=== PATIENT | female | born 1945 | race Caucasian/White ===

== ENCOUNTER 2025-07-23 09:11 | Emergency (ER) | payer MEDICARE, MEDICAID ==
[~2025-07-23] VITALS: Ht 162.6 cm; Wt 80.0 kg
--- NOTE | 2025-07-23 09:21 | Physician Documentation ---
History of Present Illness ~ Chief Complaint: Stroke Alert Stated Complaint: CVA Time Seen by MD: 09:17 OK to notify your PCP?: Yes Source: patient, RN/MD, EMS, RN notes reviewed, EMS notes reviewed, old records Mode of Arrival: EMS Exam Limitations: no limitations HPI Patient is an 80-year-old female with past medical history of hypertension and GERD brought in by ambulance from home to the ED for a level 2 stroke alert. Patient's last known normal was yesterday afternoon. Per EMS patient reported that she had right-sided paralysis" causing her to fall. Patient did not come in for evaluation at that time, but decided to come in this morning after friend urged her. Patient was ataxic for EMS and complained of a present 5/10 headache. Blood sugar in route was 158 and blood pressure was 150/62. Patient normally takes 81 mg aspirin every night, with last dose being last night. Patient reports she was recently evaluated here on 06/21/2025 for coccyx pain status post mechanical fall. Patient denies any other associated symptoms at this time. Patient denies any other alleviating or exacerbating factors. Medication Reconciliation Allergies: Coded Allergies: Penicillins (Verified Allergy, Unknown, RASH, 07/23/25) Uncoded Allergies: BEES (Allergy, Unknown, ANAPHALAXIS, 06/21/25) Past Medical History Past Medical History: Hypertension, GERD Smoking Status: Unknown if ever smoked Lives In: Home Review of Systems All Other Systems at this time: Reviewed and Negative ROS Headache as well as other positive symptoms noted above in the HPI, otherwise all other systems are reviewed and negative. Physical Exam Vital Signs: RN Vital Signs have been reviewed: Yes, Temperature: 98.3, Source: Oral, Heart Rate: 65, Respiratory Rate: 18, BP: 150/62, Pulse Oximetry: 99, Weight: 80.000 Oxygen Flow Rate: 0 General Appearance General: The patient is well developed, well nourished, nontoxic appearing and is in no acute distress. Skin: [place], warm and dry with no rashes. HEENT: Head was normocephalic and atraumatic. Eyes - pupils equal, round, reactive to light and accommodation. Extraocular movements were intact. Conjunctivae were nonicteric. The mouth and oropharynx were clear with moist mucous membranes. There were no pharyngeal exudates or erythema. Neck: Supple and nontender. There was no jugular venous distention, lymphadenopathy, thyromegaly or masses. Chest: Clear to auscultation bilaterally without wheezes, rales or rhonchi. No accessory muscle use. No dullness to percussion. Heart: Rate regular and rhythmic. S1, S2. No murmurs. Palpation of the chest wall was normal. No rubs or thrills. Abdomen: Soft, nontender and nondistended. Positive bowel sounds. No guarding or rebound. Extremities: No cyanosis, clubbing or edema. The patient moves all extremities. Pulses were equal and symmetric. Neurologic: Patient has weakness to right upper extremity and right lower extremity. RLE weakness > RUE weakness. Psychologic: The patient was oriented to person, place and time. The patient demonstrated appropriate judgement and insight. Progress Progress Note 0948: Spoke with on-call radiologist who reports up of a 9 mm shift. Patient will be transferred to neurosurgery. 1003: Consulted with [facility] physician, Dr. Moore, regarding the patient's case. He kindly accepts the patient for transfer at this time. Results/Orders Reviewed/noted all lab results: Yes Results/Orders Orders - BRAN HURTADO MD Electrocardiogram (07/23/25 09:19) Urinalysis, Cult If Indicated (07/23/25:19) Chest,Single View (07/23/25 09:19) Ct Stroke Alert (07/23/25 09:32) * Vital Signs Routine* [id number] (07/23/25 09:19) * Npo Until Passed Bedside Swa (07/23/25:19) Nursing Swallow Screen (07/23/25:19) [place] Neuro Consult (07/23/25 09:22) Normal Saline 1000ml (0.9% Sodium Chlori (07/23/25:25) Tranexamic Acid 1gm/0.7% Alan. (Tranexami (07/23/25 09:30) Completed Orders - BRAN HURTADO MD Electrocardiogram (07/23/25 09:19) Cbc/Diff (07/23/25:19) BMP (07/23/25 09:19) Pt Inr (07/23/25:19) PTT (07/23/25 09:19) Chest,Single View (07/23/25 09:19) Ct Stroke Alert (07/23/25 09:32) Liver Panel (07/23/25 09:22) MG (07/23/25 09:22) Dexamethasone Inj (Decadron 10mg/Ml Inj) (07/23/25 09:48) Medications Received in ER Medications (Trade) Dose Ordered Sig/Ramona Route PRN Reason Start Time Stop Time Status Last Admin Dose Admin Sodium Chloride 1,000 ml @ 200 mls/hr Q5H ONCE IV 07/23/25 09:25 07/23/25 14:24 07/23/25 09:41 200 MLS/HR Tranexamic Acid 100 ml @ 100 mls/hr ONCE ONCE IV 07/23/25 09:30 07/23/25 10:29 07/23/25 09:41 100 MLS/HR (Decadron 10mg/ ml inj) 10 mg ONCE STAT IV 07/23/25 09:48 07/23/25 09:49 DC 07/23/25 09:53 10 MG Vital Signs 07/23/25 07/23/25 07/23/25 09:13 09:20 09:20 Temp 98.3 Pulse 65 63 Resp 18 16 B/P (MAP) 150/62 159/72 Pulse Ox 99 98 O2 Flow Rate 0 Laboratory Tests Test 07/23/25 09:20 07/23/25 09:21 07/23/25 10:00 Glucometer 146 H White Blood Count 7.5 Red Blood Count 4.70 Hemoglobin 13.5 Hematocrit 40.2 Mean Corpuscular Volume 85.5 Mean Corpuscular Hemoglobin 28.7 Mean Corpuscular Hemoglobin Concent 33.6 Red Cell Distribution Width 13.8 Platelet Count 343 Mean Platelet Volume 7.0 L Neutrophils (%) (Auto) 62.2 Lymphocytes (%) (Auto) 29.7 Monocytes (%) (Auto) 7.0 Eosinophils (%) (Auto) 0.5 Basophils (%) (Auto) 0.6 Neutrophils # (Auto) 4.6 Lymphocytes # (Auto) 2.2 Monocytes # (Auto) 0.5 Eosinophils # (Auto) 0.0 Basophils # (Auto) 0.0 CBC Comment Prothrombin Time 10.6 INR International Normalized Ratio 1.0 Activated Partial Thromboplast Time 24 Coagulation Comments Sodium Level 143 Potassium Level 3.4 L Chloride Level 105 Carbon Dioxide Level 28.7 Anion Gap 9 Blood Urea Nitrogen 15 Creatinine 0.81 Estimated GFR/1.73 m2 68 BUN/Creatinine Ratio 18.5 Glucose Level 144 H Calcium Level 9.7 Magnesium Level 2.2 Total Bilirubin 0.6 Direct Bilirubin 0.1 Aspartate Amino Transf (AST/SGOT) 29 Alanine Aminotransferase (ALT/SGPT) 31 Alkaline Phosphatase 125 H Total Protein 7.9 Albumin 4.0 Globulin 3.9 Albumin/Globulin Ratio 1.0 L Chemistry Comments Urine Comment Re-Evaluation Re-Evaluation : Re-Evaluation: Unchanged Progress Patient was seen and examined. Patient is given reassurance. Patient was found to have an acute on chronic subdural hematoma now asymptomatic given TXA as well as 10 mg of Decadron. Patient received some fluids as well. Family members will be called if available. Discussed the case with [facility] who kindly agreed to admit the patient for emergent medical and neurosurgical intervention. Patient looks well at this time smiling comfortable. EKG/XRAY/CT/US/VASC/MRI EKG : EKG Rate: 61 Additional Comment [facility] Test Date: 2025-07-23 Test Time: 09:15:51 Pat Name: YONNY BILLINGS Department: EMERGENCY ROOM Room: Gender: F [employer]: [employer]IM[employer] : 1945 Requested By: BRAN HURTADO Order Number: [id number] Reading MD: Dr. Bran Hurtado Measurements Intervals [place] Rate: 61 P: 73 [place]: 168 QRS: -11 QRSD: 139 T: 20 QT: 473 QTc: 477 Interpretive Statements Atrial-paced complexes Left bundle branch block Electronically Signed On 07-23-2025 9:54:[address] Bran Hurtado Please click the below link to view image of tracing. EKG Date and Time:07/23/25914 Electronically Signed by: BRAN HURTADO MD Date and Time: 07/23/25953 Chest X-Ray : Interpreted By: radiologist Views: 1 VIEW Additional Comments CHEST RADIOGRAPH Indication: Stroke Alert Technique: Single frontal view of the chest was obtained COMPARISON: None FINDINGS: Lines and Tubes: None Lungs: Increased interstital prominence. This may represent pulmonary vascular congestion and/or viral pneumonia. Pleura: No effusion.No pneumothorax. Cardiomediastinal contours: Cardiomegaly. Bones: Unremarkable IMPRESSION: Cardiomegaly. Increased interstital prominence. This may represent pulmonary vascular congestion and/or viral pneumonia. Electronically Signed by:AVILA HOLT MD Date & Time: 07/23/2556 CT : Interpreted By: radiologist CT: head Impression EXAM: CT CT STROKE ALERT HISTORY: right sided weaknes ataxia COMPARISON: None TECHNIQUE: Axial images were obtained and reformatted in coronal and sagittal planes. All CT scans at this medical facility are performed using dose modulation techniques as appropriate to a performed exam including the following: Automated exposure control was utilized; adjustment of the MA and/or KV according to patient size; and use of iterative reconstruction technique. CT Dose: CTDI volume is 57 mGy. Dose-length product is 983 mGy*cm FINDINGS: Supratentorial Region: No evidence for large acute territorial ischemia. Left frontal lentiform extra-axial acute hemorrhage with hematocrit effect noted measuring 2.6 cm in transverse and approximately 10 cm in AP. There is 0.9 cm [id number] midline shift. Posterior Fossa: No acute abnormality. Brainstem: Unremarkable. Sellar/Suprasellar Region: Unremarkable. Ventricles, Cisterns, Sulci: Age-appropriate. Orbits: Unremarkable. Paranasal Sinuses: Unremarkable. Mastoid Air Cells: Unremarkable. Vasculature: Unremarkable. Bones/Soft Tissues: No acute abnormality. Other: None. IMPRESSION: Large left frontal fossa extra-axial lentiform hemorrhage containing varying ages of bleed (acute and subacute) with 0.9 cm [id number] midline shift. This could be subdural or epidural. Lentiform appearance is suggestive of epidural hemorrhage but crossing osseous suture reflects subdural location. No calvarial fracture. Critical Result: Stroke Alert , intracranial hemorrhage Findings discussed with , at 07/23/2025 09:51 AM, and acknowledged receipt and understanding of the findings. .. Electronically Signed by:SHERRELL HESS MD Date & Time: 07/23/25 0952 Medical Decision Making Additional information obtaine: old records Findings Fall may have produce original subdural bleed now having acute on chronic subdural bleeds versus acute stroke Differential Dx:Considerations: Include: Kumar's Palse[place], CVA, Delirium tremens, DKA, Drug overdose, Electrolyte imbalance, Encephalopathy, Hypoxemia, Hypoglycemia, Mass lesion, Respiratory failure, Subarachnoid Hemorrhage, TIA, Other Departure Time of Disposition: 09:40 Disposition: 04 INTERMEDIATE CARE FACILITY Admission Level of Care: Neuro Impression: Primary Impression: Acute on chronic subdural hematoma Condition: Critical Referrals: NO PRIMARY CARE PROVIDER (PCP) Education Educated: Patient Educated regarding: diagnosis, treatment Critical Care Note Total Time (mins): 35 Critical Care Note The very real possibility of a deterioration of this patient's condition required the highest level of my preparedness for sudden, emergent intervention. I provided critical care services, which included medication orders, frequent reevaluations of the patient's condition and response to treatment, ordering and reviewing test results, and discussing the case with various consultants. E xcludes time spent performing separately billable procedures. The critical care time associated with the care of the patient was 35 minutes. Signature Scribe Signature: Scribed for Bran Hurtado MD by Sebastian Bhakta . 07/23/25 09:24 Attestation: The note accurately reflects work and decisions made by me.Bran Hurtado MD 07/23 09:21 BRAN HURTADO MD Jul 23, 2025 09:21 SEBASTIAN AYALA Jul 23, 2025 09:30
--- NOTE | 2025-07-23 09:21 | ELECTROCARDIOGRAPH REPORT ---
[facility] Test Date: 2025-07-23 Test Time: 09:15:51 Pat Name: YONNY BILLINGS Department: EMERGENCY ROOM Room: Gender: F Posting Clerk: NIMCO : 1945 Requested By: APOLLO HURTADO Order Number: [id number] Reading MD: Dr. Apollo Hurtado Measurements Intervals [place] Rate: 61 P: 73 NE: 168 QRS: -11 QRSD: 139 T: 20 QT: 473 QTc: 477 Interpretive Statements Atrial-paced complexes Left bundle branch block Electronically Signed On 07-23-2025 9:54:[address] Apollo Hurtado Please click the below link to view image of tracing.
[2025-07-23 09:32] LABS: MEAN PLATELET VOLUME 7.0 FL (7.4-10.4); RED CELL DISTRIBUTION WIDTH 13.8 % (11.5-14.5)
[2025-07-23] MEDS: tranexamic acid 1gm/0.7% sal. 100 ML IV ONE (09:41)
[2025-07-23] MEDS: normal saline 1000ml 1,000 ML IV ONE (09:41)
[2025-07-23 09:46] LABS: APTT 24 SECONDS (22-32); INR 1.0 INR
[2025-07-23 09:47] LABS: CREATININE 0.81 MG/DL (0.40-0.90); TOTAL CARBON DIOXIDE 28.7 MMOL/L (24-32); eCRCL 48 ML/MIN; eGFR 68 ML/MIN
[2025-07-23] MEDS: dexamethasone sod phosphate 10mg/ml inj IV STA (09:53)
--- NOTE | 2025-07-23 09:55 | RADIOLOGY REPORT ---
EXAM: CT CT STROKE ALERT HISTORY: right sided weaknes ataxia COMPARISON: None TECHNIQUE: Axial images were obtained and reformatted in coronal and sagittal planes. All CT scans at this medical facility are performed using dose modulation techniques as appropriate to a performed exam including the following: Automated exposure control was utilized; adjustment of the MA and/or KV according to patient size; and use of iterative reconstruction technique. CT Dose: CTDI volume is 57 mGy. Dose-length product is 983 mGy*cm FINDINGS: Supratentorial Region: No evidence for large acute territorial ischemia. Left frontal lentiform extra-axial acute hemorrhage with hematocrit effect noted measuring 2.6 cm in transverse and approximately 10 cm in AP. There is 0.9 cm [id number]-ji-[id number] midline shift. Posterior Fossa: No acute abnormality. Brainstem: Unremarkable. Sellar/Suprasellar Region: Unremarkable. Ventricles, Cisterns, Sulci: Age-appropriate. Orbits: Unremarkable. Paranasal Sinuses: Unremarkable. Mastoid Air Cells: Unremarkable. Vasculature: Unremarkable. Bones/Soft Tissues: No acute abnormality. Other: None. IMPRESSION: Large left frontal fossa extra-axial lentiform hemorrhage containing varying ages of bleed (acute and subacute) with 0.9 cm [id number] midline shift. This could be subdural or epidural. Lentiform appearance is suggestive of epidural hemorrhage but crossing osseous suture reflects subdural location. No calvarial fracture. Critical Result: Stroke Alert , intracranial hemorrhage Findings discussed with , at 07/23/2025 09:51 AM, and acknowledged receipt and understanding of the findings. ..
--- NOTE | 2025-07-23 09:58 | RADIOLOGY REPORT ---
CHEST RADIOGRAPH Indication: Stroke Alert Technique: Single frontal view of the chest was obtained COMPARISON: None FINDINGS: Lines and Tubes: None Lungs: Increased interstital prominence. This may represent pulmonary vascular congestion and/or viral pneumonia. Pleura: No effusion.No pneumothorax. Cardiomediastinal contours: Cardiomegaly. Bones: Unremarkable IMPRESSION: Cardiomegaly. Increased interstital prominence. This may represent pulmonary vascular congestion and/or viral pneumonia.
[2025-07-23 10:12] VITALS: TEMP 98.3
[2025-07-23 10:13] LABS: LEUKOCYTE ESTERASE ,URINE LARGE (Neg); NITRITES, URINE POSITIVE (Neg); OCCULT BLOOD,URINE TRACE-INTACT (Neg)
[2025-07-23 10:19] LABS: UA COLLECTION TYPE OTHER
[2025-07-23 10:21] LABS: AMORPHOUS PHOSPHATES 1+; SQUAMOUS EPITHELIAL CELL,UR FEW /LPF (FEW)
[2025-07-23 10:33] VITALS: BP 150/78; PULSE 87; RESP 16; O2SAT 98
== END 2025-07-23 10:34 ==
LOC: ER 09:11
DX: S06.5XAA Traumatic subdural hemorrhage with loss of consciousness status unknown, initial encounter (principal); I10 Essential (primary) hypertension; K21.9 Gastro-esophageal reflux disease without esophagitis; Z88.0 Allergy status to penicillin; Z95.0 Presence of cardiac pacemaker; X58.XXXA Exposure to other specified factors, initial encounter; Y93.89 Activity, other specified; Y92.89 Other specified places as the place of occurrence of the external cause; Y99.8 Other external cause status
CPT/HCPCS: 36415; 70450; 71045; 80048; 80076; 81001; 82948; 83735; 85025; 85610; 85730; 87077; 87088; 87186; 93005; 96365; 96375; 99291; A4353; J1100; J3490; J7030; C1758